=== PATIENT | male | born 1995 | race Caucasian/White ===

== ENCOUNTER 2018-01-16 19:37 | Emergency (ER) | payer OTHER ==
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
--- NOTE | 2018-01-16 21:38 | XR ---
EXAMINATION TYPE: XR chest 2V DATE OF EXAM: 01/16/2018 COMPARISON: NONE HISTORY: Dizziness TECHNIQUE: Frontal and lateral views of the chest are obtained. FINDINGS: Heart and mediastinum are normal. Lungs are clear. Diaphragm is normal. Bony thorax is int act. Pulmonary vascularity is normal. IMPRESSION: Normal chest.
[2018-01-16 21:46] LABS: Basophils # (A) 0.1 k/uL (0-0.2); Basophils % (A) 0 %; Eosinophils # (A) 0.1 k/uL (0-0.7); Eosinophils % (A) 1 %; HCT 40.8 % (39.0-53.0); HGB 14.1 gm/dL (13.0-17.5); Lymphocytes # (A) 1.1 k/uL (1.0-4.8); Lymphocytes % (A) 8 %; MCH 30.9 pg (25.0-35.0); MCHC 34.6 g/dL (31.0-37.0); MCV 89.5 fL (80.0-100.0); Mean Platelet Volume 7.1; Monocytes # (A) 0.5 k/uL (0-1.0); Monocytes % (A) 4 %; Neutrophils # (A) 12.7 k/uL (1.3-7.7); Neutrophils % (A) 87 %; Platelet Count 225 k/uL (150-450); RBC 4.56 m/uL (4.30-5.90); RDW 12.2 % (11.5-15.5); WBC 14.6 k/uL (3.8-10.6)
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
[2018-01-16 21:50] LABS: Appearance,Urine Clear (Clear); Bacteria,Urine Rare /hpf; Bilirubin,Urine Negative (Negative); Blood,Urine Negative (Negative); Color,Urine Yellow; Glucose,Urine (UA) Negative (Negative); Ketones,Urine 1+ (Negative); Leukocyte Esterase,Urine Negative (Negative); Mucus,Urine Moderate /hpf; Nitrite,Urine Negative (Negative); PH, Urine 6.5 (5.0-8.0); Protein,Urine 1+ (Negative); Specific Gravity,Urine 1.024 (1.001-1.035); Squamous Epithelial Cell,Urine <1 /hpf (0-4)
[2018-01-16 21:54] LABS: ALT 30 U/L (21-72); AST 18 U/L (17-59); Albumin 4.1 g/dL (3.5-5.0); Alkaline Phosphatase 63 U/L (38-126); Anion Gap 8 mmol/L; Blood Urea Nitrogen 15 mg/dL (9-20); Calcium 9.3 mg/dL (8.4-10.2); Carbon Dioxide 23 mmol/L (22-30); Chloride 108 mmol/L (98-107); Glucose 93 mg/dL (74-99); Potassium 4.1 mmol/L (3.5-5.1); Sodium 139 mmol/L (137-145); Total Bilirubin 0.7 mg/dL (0.2-1.3); Total Protein 6.7 g/dL (6.3-8.2)
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
[2018-01-16 22:20] VITALS: BP 106/55; PULSE 64; RESP 14; TEMP 97.4
== END 2018-01-16 22:27 | disposition home or self-care (01) ==
LOC: EC 19:37
DX: R55 Syncope and collapse (principal); M25.522 Pain in left elbow; F17.210 Nicotine dependence, cigarettes, uncomplicated; Z98.890 Other specified postprocedural states; V47.5XXA Car driver injured in collision with fixed or stationary object in traffic accident, initial encounter; Y92.009 Unspecified place in unspecified non-institutional (private) residence as the place of occurrence of the external cause
CPT/HCPCS: 36415; 70450; 71046; 72125; 80053; 81001; 85025; 93005; 99285

== ENCOUNTER 2018-12-07 11:49 | Emergency (ER) | payer OTHER ==
[2018-12-07 12:08] VITALS: TEMP 98.3
--- NOTE | 2018-12-07 12:13 | ED ---
General Adult HPI - General Chief complaint: Nausea/Vomiting/Diarrhea Stated complaint: ABDOMINAL PAIN Time Seen by Provider: 12/07/18 12:02 Source: patient, RN notes reviewed Mode of arrival: ambulatory Limitations: no limitations - History of Present Illness Initial comments: 23-year-old male presents to the emergency department for chief complaint of right testicular pain and right lower abdominal pain. Patient states that the pain radiates from the right testicle into his right abdomen. States that the right testicle has been swollen for 3-4 days. He states the pain seems E worsening. 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 Patient does admit to a hernia surgery about 3 years ago. Patient is unsure if this is related.Patient has no other complaints at this time including shortness of breath, chest pain, nausea or vomiting, headache, or visual changes. - Related Data Home Medications Medication Instructions Recorded Confirmed No Known Home Medications 01/11/16 01/11/16 Allergies Allergy/AdvReac Type Severity Reaction Status Date / Time No Known Allergies Allergy Verified 01/11/16 23:38 Review of Systems ROS Statement: Those systems with pertinent positive or pertinent negative responses have been documented in the HPI. ROS Other: All systems not noted in ROS Statement are negative. Past Medical History Past Medical History: No Reported History Additional Past Medical History / Comment(s): back pain History of Any Multi-Drug Resistant Organisms: None Reported Past Surgical History: Back Surgery Past Psychological History: No Psychological Hx Reported Smoking Status: Current every day smoker Past Alcohol Use History: None Reported Past Drug Use History: Marijuana General Exam Limitations: no limitations General appearance: alert, in no apparent distress Head exam: Present: atraumatic, normocephalic, normal inspection Eye exam: Present: normal appearance, PERRL, EOMI. Absent: scleral icterus, conjunctival injection, periorbital swelling ENT exam: Present: normal exam, mucous membranes moist Neck exam: Present: normal inspection, full ROM. Absent: tenderness, meningismus, lymphadenopathy Respiratory exam: Present: normal lung sounds bilaterally. Absent: respiratory distress, wheezes, rales, rhonchi, stridor Cardiovascular Exam: Present: regular rate, normal rhythm, normal heart sounds. Absent: systolic murmur, diastolic murmur, rubs, gallop, clicks GI/Abdominal exam: Present: soft, normal bowel sounds. Absent: distended, tenderness (No tenderness noted of the abdomen), guarding, rebound, rigid exam: Present: testicular tenderness, other (No significant Testicular edema or erythema. There is right testicular tenderness. No bulging indicative of hernia noted.). Absent: urethral discharge, scrotal swelling, vertical testicular lie, circumcision Course Vital Signs 12/07/18 12/07/18 12:01 13:45 Temperature 98.3 F Pulse Rate 68 60 Respiratory 19 16 Rate Blood Pressure 118/74 109/68 O2 Sat by Pulse 100 98 Oximetry Medical Decision Making - Medical Decision Making 23 red male presents for right testicular and groin pain. This has been ongoing for the past few days. However patient denies any pain at rest stating is only painful when he bends over to pick something up. Denies any pain at this time and refuses pain medications. Exam revealed right tender testicle without erythema. Groin area is also slightly tender however no bulging noted. Ultrasound of the groin was performed which reveals a probable direct right inguinal hernia. Scrotal ultrasound was also obtained which showed a normal testicular ultrasound. Good vascular flow noted. No evidence for incarcerated hernia at this time as patient is not having any pain at rest or during his stay in the ER. - Lab Data Lab Results 12/07/18 Range/Units 12:15 Urine Color Yellow Urine Appearance Clear (Clear) Urine pH 6.0 (5.0-8.0) Ur Specific [place] 1.029 (1.001-1.035) Urine Protein Trace H (Negative) Urine Glucose (UA) Negative (Negative) Urine Ketones Negative (Negative) Urine Blood Negative (Negative) Urine Nitrite Negative (Negative) Urine Bilirubin Negative (Negative) Urine Urobilinogen <2.0 (<2.0) mg/dL Ur Leukocyte Esterase Negative (Negative) Disposition Clinical Impression: Direct inguinal hernia of right side Disposition: HOME SELF-CARE Condition: Good Instructions (If sedation given, give patient instructions): Inguinal Hernia (ED) Additional Instructions: Please follow up with surgery tomorrow morning. If you have any worsening symptoms or pain at rest return to the emergency department. Is patient prescribed a controlled substance at d/c from ED?: No Referrals: Betzaida Cazares DO [Doctor of Osteopathic Medicine] - 1-2 days Larry Webber MD [REFERRING] - 1-2 days Time of Disposition: 14:05
[2018-12-07 12:26] LABS: Appearance,Urine Clear (Clear); Bilirubin,Urine Negative (Negative); Blood,Urine Negative (Negative); Color,Urine Yellow; Glucose,Urine (UA) Negative (Negative); Ketones,Urine Negative (Negative); Leukocyte Esterase,Urine Negative (Negative); Nitrite,Urine Negative (Negative); Protein,Urine Trace (Negative); Specific Gravity,Urine 1.029 (1.001-1.035); Urobilinogen,Urine <2.0 mg/dL (<2.0)
--- NOTE | 2018-12-07 13:34 | US ---
EXAMINATION TYPE: US scrotum with doppler. Grayscale and color Doppler Duplex imaging performed of t he scrotum. DATE OF EXAM: 12/07/2018 COMPARISON: Previous study dated 01/09/2015 CLINICAL HISTORY: pain r testicle. EXAM MEASUREMENTS: TESTICLES: Right Testicle: 5.1 x 2.7 x 2.7 cm Left Testicle: 4.9 x 2.3 x 3.1 cm EPIDIDYMIS HEAD: Right Epididymis: 0.9 cm Left Epididymis: 0.9cm Doppler performed to assess for testicular vascularity; good bilateral color flow and waveforms are s een. There is no evidence of testicular torsion. Presence of hydroceles: no Presence of varicoceles: no IMPRESSION: Normal Testicular Ultrasound.
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
[2018-12-07 13:47] VITALS: BP 109/68; PULSE 60; RESP 16
[2018-12-09 13:44] LABS: N. gonorrhoeae,PCR Negative (Neg,Equiv); Neisseria Source Urine
[2018-12-09 13:55] LABS: C. trachomatis,PCR Negative (Neg,Equiv); Chlamydia trachomatis Source Urine
== END 2018-12-07 14:12 | disposition home or self-care (01) ==
LOC: EC 11:49
DX: K40.90 Unilateral inguinal hernia, without obstruction or gangrene, not specified as recurrent (principal); N50.811 Right testicular pain; F17.200 Nicotine dependence, unspecified, uncomplicated
CPT/HCPCS: 76870; 81003; 87491; 87591; 87661; 93975; 99284

== ENCOUNTER 2022-05-28 08:17 | Emergency (ER) | payer BC ==
[2022-05-28 08:24] VITALS: BP 105/63; PULSE 65; RESP 18; TEMP 97.8
[2022-05-28] MEDS ORDERED: DEXAMETHASONE SOD PHOSPHATE 10 MG/ML 1 ML VIAL IM STA (08:32)
--- NOTE | 2022-05-28 08:40 | ED ---
Back Pain HPI - General Chief Complaint: Back Pain/Injury Stated Complaint: back pain Time Seen by Provider: 05/28/22 08:20 Source: patient, RN notes reviewed, old records reviewed Limitations: no limitations - History of Present Illness Initial Comments: This is a nontoxic-appearing 26-year-old male who presents ambulatory with complaints of low back pain radiating down his right leg to his foot. States coughed and felt pop in his low back. Does have a history of sciatica with a history of discectomy several years ago. He states in the past he did receive a steroid injection which improved his symptoms for several years. Denies any trauma. No bowel or bladder incontinence, no fever. Non-smoker. MD Complaint: back pain -: days(s) (1) Similar Symptoms Previously: Yes Radiation: right leg (to foot) Severity scale (1-10): 6 Consistency: constant Improves With: none Context: other (after cough felt pop in low back) Associated Symptoms: denies other symptoms - Related Data Previous Rx's Medication Instructions Recorded Cyclobenzaprine [Flexeril] 10 mg PO TID PRN #15 tab 05/28/22 Allergies Allergy/AdvReac Type Severity Reaction Status Date / Time No Known Allergies Allergy Verified 05/28/22 08:24 Review of Systems ROS Statement: Those systems with pertinent positive or pertinent negative responses have been documented in the HPI. ROS Other: All systems not noted in ROS Statement are negative. Past Medical History Past Medical History: No Reported History Additional Past Medical History / Comment(s): back pain History of Any Multi-Drug Resistant Organisms: None Reported Past Surgical History: Back Surgery Past Psychological History: No Psychological Hx Reported Smoking Status: Former smoker Past Alcohol Use History: None Reported Past Drug Use History: Marijuana General Exam Limitations: no limitations General appearance: alert, in no apparent distress Head exam: Present: atraumatic Eye exam: Present: normal appearance. Absent: scleral icterus, conjunctival injection, periorbital swelling Neck exam: Absent: tenderness, meningismus Respiratory exam: Present: normal lung sounds bilaterally. Absent: respiratory distress, accessory muscle use Cardiovascular Exam: Present: regular rate GI/Abdominal exam: Present: soft Extremities exam: Present: normal capillary refill Back exam: Present: full ROM. Absent: tenderness, CVA tenderness (R), CVA tenderness (L), muscle spasm, paraspinal tenderness, vertebral tenderness, rash noted Neurological exam: Present: alert, oriented X3, normal gait Psychiatric exam: Present: normal affect, normal mood Skin exam: Present: warm, dry, normal color. 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 Patient with a history of sciatica and discectomy. Denies any bowel or bladder incontinence. No saddle anesthesia. Is able to ambulate with a steady gait. Denies any fevers. No trauma no history of cancer. Is a former smoker. No concerning red flag symptoms. Patient states in the past received relief with a steroid injection. He was given a shot of Decadron directed to follow up with his primary care doctor. Strict return parameters were discussed. He is agreeable to this plan of care. Patient requesting a prescription for muscle relaxer, states when the pain occurs his muscles tense and he is unable to sleep. Prescription was provided. Directed not to drink, drive or operative machinery was taking this medication. Case discussed with Dr. Curtis. Was pt. sent in by a medical professional or institution ([facility], [employer] SALES REPRESENTATIVE, urgent care, hospital, or penitentiary...) When possible be specific @ -No Did you speak to anyone other than the patient for history (EMS, parent, family, police, friend...)? What history was obtained from this source @ -No Did you review nursing and triage notes (agree or disagree)? Why? @ -I reviewed and agree with nursing and triage notes Were old charts reviewed (outside hosp., previous admission, EMS record, old EKG, old radiological studies, urgent care reports/EKG's, penitentiary records)? Report findings @ -Yes MRI as above Differential Diagnosis (chest pain, altered mental status, abdominal pain women, abdominal pain men, vaginal bleeding, weakness, fever, dyspnea, syncope, headache, dizziness, GI bleed, back pain, seizure, CVA, palpatations, mental health, musculoskeletal)? @ -Sciatica, cauda equina syndrome, kidney stone, disc herniation, acute muscle strain, this is not an all inclusive list EKG interpreted by me (3pts min.). @ -n/a X-rays interpreted by me (1pt min.). @ -None done CT interpreted by me (1pt min.). @ -None done U/S interpreted by me (1pt. min.). @ -None done What testing was considered but not performed or refused? (CT, X-rays, U/S, labs)? Why? @ -None What meds were considered but not given or refused? Why? @ -None Did you discuss the management of the patient with other professionals (professionals i.e. , PA, [employer] SALES REPRESENTATIVE, lab, RT, psych nurse, medical social worker, flotation tender helper, teacher, county health officer, medical case worker)? Give summary @ -No Was smoking cessation discussed for >3mins.? @ -No Was critical care preformed (if so, how long)? @ -No Were there social determinants of health that impacted care today? How? (Homelessness, low income, unemployed, alcoholism, drug addiction, transportation, low edu. Level, literacy, decrease access to med. care, residential, rehab)? @ -No Was there de-escalation of care discussed even if they declined (Discuss DNR or withdrawal of care, Hospice)? DNR status @ -No What co-morbidities impacted this encounter? (DM, HTN, Smoking, COPD, CAD, Cancer, CVA, ARF, Chemo, Hep., AIDS, mental health diagnosis, sleep apnea, morbid obesity)? @ -None Was patient admitted / discharged? Hospital course, mention meds given and rout e, prescriptions, significant lab abnormalities, going to OR and other pertinent info. @ -Discharged Undiagnosed new problem with uncertain prognosis? @ -No Drug Therapy requiring intensive monitoring for toxicity (Heparin, Nitro, Insulin, Cardizem)? @ -No Were any procedures done? @ -No Diagnosis/symptom? @ -Low back pain, sciatica Acute, or Chronic, or Acute on Chronic? @ -Acute on chronic Uncomplicated (without systemic symptoms) or Complicated (systemic symptoms)? @ -Uncomplicated Side effects of treatment? @ -No Exacerbation, Progression, or Severe Exacerbation? @ -No Poses a threat to life or bodily function? How? (Chest pain, [place], OR, pneumonia, PE, COPD, DKA, ARF, appy, cholecystitis, CVA, Diverticulitis, Homicidal, Suicidal, threat to staff... and all critical care pts) @ -No Disposition Clinical Impression: Low back pain Disposition: HOME SELF-CARE Condition: Good Instructions (If sedation given, give patient instructions): Acute Low Back Pain (ED) Additional Instructions: Tylenol and Motrin as needed for any pain or discomfort. Follow-up with your primary care doctor this week for continuation of care. Return to the emergency room with any new or concerning symptoms including bowel or bladder incontinence, fevers or inability to ambulate. Prescriptions: Cyclobenzaprine [Flexeril] 10 mg PO TID PRN #15 tab PRN Reason: Muscle Spasm Is patient prescribed a controlled substance at d/c from ED?: No Referrals: None,Stated [Primary Care Provider] - 1-2 days Time of Disposition: 08:38
== END 2022-05-28 09:06 | disposition home or self-care (01) ==
LOC: EC 08:17
DX: M54.50 Low back pain, unspecified (principal); F12.90 Cannabis use, unspecified, uncomplicated; Z87.891 Personal history of nicotine dependence
CPT/HCPCS: 99283; 96372; J1100

== ENCOUNTER → 2022-06-15 | Outpatient (CLI) | payer BC ==
--- NOTE | 2022-06-18 06:13 | MR ---
EXAMINATION TYPE: MR lumbar spine wo con DATE OF EXAM: 06/15/2022 COMPARISON: Prior MRI lumbar spine August 18, 2015 HISTORY: Low back pain that radiates down right leg. TECHNIQUE: Multiplanar, multisequence imaging of the lumbar spine is performed without IV contrast. FINDINGS: Sagittal images of the lumbar spine show vertebral body heights and alignment to appear sta ble and satisfactory. Persistent disc desiccation and mild disc space narrowing at L5-S1 level. The conus medullaris remains normal in position and signal terminating superior L1 level. The bone marro w signal intensity is within normal limits. Axial images show T12-L1 through L2-L3 levels to remain within normal limits. Axial images at L3-L4 and L4-L5 levels redemonstrate mild facet arthropathy bilaterally but spinal ca nal is preserved. Axial images at the L5-S1 level redemonstrated large broad-based right paracentral disc protrusion ax ial image 5 measuring 17 mm transversely by 8 mm AP diameter significantly effacing the anterolateral thecal sac and the right central S1 nerve. Bilateral neural foramina remain patent. Finding has cy lar appearance to prior MRI. Paraspinal muscle bulk is maintained. IMPRESSION: Large disc herniation L5-S1 levels redemonstrated with similar appearance to 2016 MRI lik connie accounting for patient's right-sided radiculopathy type symptoms.
== END | disposition home or self-care (01) ==
LOC: RADMRIMAIN 19:31
PROVIDERS: ATTEND Internal Medicine
DX: M51.17 Intervertebral disc disorders with radiculopathy, lumbosacral region (principal); M96.1 Postlaminectomy syndrome, not elsewhere classified
CPT/HCPCS: 72148